=== PATIENT | female | born 1955 | race Caucasian/White ===

== ENCOUNTER → 2016-11-03 | Outpatient (CLI) | payer OTHER | LOC: RAD 09:23 | DX: R05 Cough (principal); R91.8 Other nonspecific abnormal finding of lung field | CPT/HCPCS: 71020; 93005 ==

== ENCOUNTER → 2016-12-09 | Outpatient (CLI) | payer OTHER | LOC: KOH-I 13:18 | DX: R07.9 Chest pain, unspecified (principal) | CPT/HCPCS: 71250 ==